=== PATIENT | male | born 1995 | race Caucasian/White ===

== ENCOUNTER → 2017-02-15 | Outpatient (CLI) | payer BC ==
[~2017-02-15] MED LIST: AMPH20TA2 PO; ESCI10TA17 PO; OXYC-57 PO; PREG1CAP70 PO
--- NOTE | 2017-02-15 17:53 | DIAGNOSTIC IMAGING REPORT ---
CHEST 2 VIEWS ROUTINE CLINICAL HISTORY: ACUTE BRONCHITIS dyspnea COMPARISON STUDY: No previous studies for comparison. FINDINGS: The bones soft tissues and hemidiaphragms are normal. The cardiomediastinal silhouette is normal. The lungs are clear. The pulmonary vasculature is normal. IMPRESSION: Negative chest. Electronically signed by: Hernan Boss M.D. 02/15/2017 5:52 PM Dictated Date/Time: 02/15/2017 5:51 PM
== END | disposition home or self-care (01) ==
LOC: C.RAD 17:23
PROVIDERS: ATTEND Physician Assistant
DX: J20.9 Acute bronchitis, unspecified (principal)

== ENCOUNTER → 2017-08-02 | Day surgery (SDC) | payer BC ==
[2017-07-27 09:43] VITALS: BMI 24.0
[~2017-08-02] VITALS: Ht 190.5 cm; Wt 88.0 kg
[~2017-08-02] MED LIST changes: -AMPH20TA2 PO; +ATROPINE SULFATE 0.1 MG/ML 5ML SYR IV PRN; +BUPIVACAINE 0.5 % 5 MG/1 ML MPF 30ML VIAL ONE; +CEFAZOLIN 2000 MG/60 ML D5W IV SCH; +CISATRACURIUM BESYLATE IV SOLN 2 MG/ML 10 ML VIAL ONE; +DEXAMETHASONE SOD INJ 4 MG/ML VIAL ONE; +EpHEDrine SULFATE INJ 50 MG/ML AMP IV PRN; +FENTANYL CITRATE INJ 50 MCG/1 ML 2 ML VIAL ONE; +FLUMAZENIL 0.1 MG/1 ML 10 ML VIAL IV PRN; +GLYCOPYRROLATE INJ 0.2 MG/ML VIAL ONE; +HYDROmorphone INJ 1 MG/ML SYR IV PRN; +HYDROmorphone INJ 2 MG/ML SYR/VIAL ONE; +KETOROLAC TROMETHAMINE 30 MG/ML VIAL ONE; +LACTATED RINGER'S 1000ML 1,000 ML IV ONE; +LACTATED RINGER'S 1000ML 1,000 ML IV SCH; +LIDOCAINE HCL 2% 2 ML VIAL (20MG/ML) ONE; +MIDAZOLAM HCL 1 MG/ML 2ML VIAL ONE; +MoRPHine SULFATE 2 MG/ML CARP IV PRN; +NALOXONE HCL 0.4 MG/1 ML VIAL/CARP IV PRN; +NEOSTIGMINE METHYLSULFATE 5 MG/5 ML SYR ONE; +ONDANSETRON INJ 2 MG/ML 2 ML VIAL IV PRN; +ONDANSETRON INJ 2 MG/ML 2 ML VIAL ONE; +OXYCODONE/ACETAMINOPHEN 5-325 TAB PO PRN; +PROMETHAZINE HCL INJ 12.5 MG in SODIUM CHLORIDE 0.9% 50ML 50 ML IV PRN; +PROPOFOL IV EMULSION 10 MG/ML 20 ML VIAL IV ONE
[2017-08-02 05:49] VITALS: BP 119/69; PULSE 51; TEMP 36.6; O2SAT 99; Ht 190.5 cm; Wt 88.0 kg
--- NOTE | 2017-08-02 07:11 | History & Physical Bridge Note ---
H&P Re-Evaluation Bridge Note: I have examined the patient, reviewed the History & Physical and in the interval since the performance of the History & Physical I have noted the following changes of clinical significance: No changes noted
--- NOTE | 2017-08-02 08:54 | [facility] Post Operative Brief Note ---
Immediate Operative Summary Operative Date Aug 02, 2017. Pre-Operative Diagnosis left inguinal hernia Post-Operative Diagnosis left inguinal hernia Procedure(s) Performed Left Open Inguinal Hernia Repair Surgeon Dr. Greco Equipment Service Engineer Surgeon(s) Hunter Cr PA-C Estimated Blood Loss 5mL Findings scar tissue from prior hip surgery. large direct defect. repaired with plug and patch. Specimens NONE PER SURGEON Anesthesia GETA Complication(s) None Disposition Recovery Room / PACU
--- NOTE | 2017-08-02 09:03 | Discharge Instructions ---
Discharge Instructions Date of Service Aug 02, 2017. Visit Reason for Visit: Left Inguinal Hernia Discharge Discharge Diagnosis / Problem: repair left inguinal hernia Discharge Goals Goal(s): Decrease discomfort Activity Recommendations Activity Limitations: as noted below Lifting Limitations: no more than 10 pounds Shower/Bathe: no limitations (ok to shower) Driving or Machine Use: resume 3 days after discharge Anesthesia . Post Anesthesia Instructions: If you have had General Anesthesia or IV Sedation: * Do not drive today. * Resume driving when surgeon permits. * Do not make important decisions or sign legal documents today. * Call surgeon for: 1. Temperature elevations greater than 101 degrees F. 2. Uncontrollable pain. 3. Excessive bleeding. 4. Persistent nausea and vomiting. 5. Medication intolerance (nausea, vomiting or rash). * For nausea and vomiting use only clear liquids such as: tea, soda, bouillon until nausea subsides, then gradually increase diet as tolerated. * If you have any concerns or questions, call your surgeon's office. If physician is unavailable and it is an emergency, call 911 or go to the nearest emergency room. . Instructions / Follow-Up Instructions / Follow-Up Dr. Greco in 1-2 weeks as planned, call [phone] if you have any questions Ice left groin off and on alternating every 20 minutes until bedtime You may take ibuprofen 600 mg every 6 hours as needed in addition to Percocet Diet Recommendations Recommended Home Diet: no limitations Procedures Procedures Performed: Left Open Inguinal Hernia Repair Pending Studies Studies pending at discharge: no Medical Emergencies . Who to Call and When: Medical Emergencies: If at any time you feel your situation is an emergency, please call 911 immediately. . Non-Emergent Contact Non-Emergency issues call your: Surgeon Call Non-Emergent contact if: you have a fever, temperature is above 101.5, your pain is not controlled, you have any medication questions . . "Provider Documentation" section prepared by Hunter Bloom. .
--- NOTE | 2017-08-02 09:06 | [facility] Operative Report ---
Operative Report Operative Date Aug 02, 2017. Pre-Operative Diagnosis left inguinal hernia Post-Operative Diagnosis left direct inguinal hernia Procedure(s) Performed open left inguinal hernia repair, plug and patch Surgeon Dr. Greco Automatic Casting Machine Operator Surgeon(s) Hunter Cr PA-C Estimated Blood Loss 5mL Findings scar tissue from prior hip surgery. large direct defect. repaired with plug and patch.. Specimens NONE PER SURGEON Anesthesia GETA Complication(s) None Disposition Recovery Room / PACU Indications Symptomatic left inguinal hernia, initially planned for laparoscopic inguinal hernia repair, however patient with latex allergy and no latex free equipment available for TEPP, therefore decided on open repair. The risks of the procedure were discussed, all questions were answered, and the patient agreed to proceed with surgery as planned. Description of Procedure The patient was properly identified, consented, and taken to the operating room where he was placed in the supine position. General endotracheal anesthesia was induced. SCDs and a safety belt were placed. Preoperative antibiotics were administered. The patient's groins and abdomen were prepped and draped in the standard sterile fashion. A surgical timeout was performed and all parties were in agreement that this was the correct patient and procedure to be performed and we continued as planned. Local anesthetic in the form of 0.5% Marcaine was injected along the proposed incision site. An oblique incision was made in the left groin through old incision from hip surgery and deepened down through the subcutaneous tissue with electrocautery. There was significant scarring making it difficult to identify the layers of the abdominal wall.The aponeurosis of the external oblique muscle was cleared of investing tissue. A small incision was made in the aponeurosis of the external oblique muscle with a knife and lengthened under direct visualization with Metzenbaum scissors. Flaps were raised cephalad and caudad on the posterior portion of the external oblique. The ilioinguinal nerve was not identified. The cord structures were circumferentially dissected and encircled with a Brad drain. A large direct hernia was noted. The hernia sac was dissected away from the cord structures, and reduced back into the abdomen. Hemostasis was achieved within the wound. A plug was placed in the direct space and secured in 4 points with 0 nurolon suture. A piece polypropylene mesh was sewn into place using interrupted 0 Nurolon sutures. It was secured to the pubic tubercle medially, the inguinal ligament caudad, and the conjoined tendon cephalad. The internal ring was recreated by securing the tails and could accommodate the tip of the surgeons fifth digit. The wound was irrigated. The aponeurosis of the external oblique was then closed with a running 3-0 Vicryl suture. Kayce's fascia was reapproximated with interrupted 3-0 Vicryl suture. The skin was closed with a running 4-0 Monocryl subcuticular suture, and Dermabond was placed over the incision. The patient was extubated in the operating room and taken to the PACU for recovery without apparent incident. All sponge, instrument, and needle counts were correct at the conclusion of the procedure. The patient tolerated the procedure well. I attest to the content of the Intraoperative Record and any orders documented therein. Any exceptions are noted below.
--- NOTE | 2017-08-02 09:40 | Anesthesiology Progress Note ---
Anesthesia Post Op Note Date & Time Aug 02, 2017 at 09:40 Vital Signs Pain Intensity: 5.0 Vital Signs Past 12 Hours Date Time Temp Pulse Resp B/P (MAP) Pulse Ox O2 Delivery O2 Flow Rate FiO2 08/02/17 09:08 36.1 64 16 132/86 100 Oxymask 10 08/02/17 05:49 36.6 51 16 119/69 (86) 99 Room Air Notes Mental Status: alert / awake / arousable, participated in evaluation Pt Amnestic to Procedure: Yes Nausea / Vomiting: adequately controlled Pain: adequately controlled Airway Patency, RR, SpO2: stable & adequate BP & HR: stable & adequate Hydration State: stable & adequate Anesthetic Complications: no major complications apparent
[2017-08-02 10:00] VITALS: BP 119/71; PULSE 54; TEMP 36.7; O2SAT 99
[2017-08-02 10:34] VITALS: BP 124/79; PULSE 49; TEMP 36.7; O2SAT 99
[2017-08-02 11:00] VITALS: BP 118/77; PULSE 67; TEMP 36.7; O2SAT 99
[2017-08-02 11:29] VITALS: BP 120/74; PULSE 64; TEMP 36.7; O2SAT 99
== END | disposition home or self-care (01) ==
LOC: C.ACU 05:15
PROVIDERS: ATTEND Surgery
DX: K40.90 Unilateral inguinal hernia, without obstruction or gangrene, not specified as recurrent (principal)

== ENCOUNTER 2017-12-24 19:02 | Inpatient (IN) | payer BC, OTHER ==
[~2017-12-24] VITALS: Ht 185.4 cm; Wt 90.5 kg
[~2017-12-24 19:02] MED LIST changes: -ATROPINE SULFATE 0.1 MG/ML 5ML SYR IV PRN; -BUPIVACAINE 0.5 % 5 MG/1 ML MPF 30ML VIAL ONE; -CEFAZOLIN 2000 MG/60 ML D5W IV SCH; -CISATRACURIUM BESYLATE IV SOLN 2 MG/ML 10 ML VIAL ONE; -DEXAMETHASONE SOD INJ 4 MG/ML VIAL ONE; -EpHEDrine SULFATE INJ 50 MG/ML AMP IV PRN; -FENTANYL CITRATE INJ 50 MCG/1 ML 2 ML VIAL ONE; -FLUMAZENIL 0.1 MG/1 ML 10 ML VIAL IV PRN; -GLYCOPYRROLATE INJ 0.2 MG/ML VIAL ONE; -HYDROmorphone INJ 1 MG/ML SYR IV PRN; -HYDROmorphone INJ 2 MG/ML SYR/VIAL ONE; -KETOROLAC TROMETHAMINE 30 MG/ML VIAL ONE; -LACTATED RINGER'S 1000ML 1,000 ML IV ONE; -LACTATED RINGER'S 1000ML 1,000 ML IV SCH; -LIDOCAINE HCL 2% 2 ML VIAL (20MG/ML) ONE; -MIDAZOLAM HCL 1 MG/ML 2ML VIAL ONE; -MoRPHine SULFATE 2 MG/ML CARP IV PRN; -NALOXONE HCL 0.4 MG/1 ML VIAL/CARP IV PRN; -NEOSTIGMINE METHYLSULFATE 5 MG/5 ML SYR ONE; -ONDANSETRON INJ 2 MG/ML 2 ML VIAL IV PRN; -ONDANSETRON INJ 2 MG/ML 2 ML VIAL ONE; -OXYCODONE/ACETAMINOPHEN 5-325 TAB PO PRN; -PROMETHAZINE HCL INJ 12.5 MG in SODIUM CHLORIDE 0.9% 50ML 50 ML IV PRN; -PROPOFOL IV EMULSION 10 MG/ML 20 ML VIAL IV ONE
[2017-12-24] MEDS ORDERED: BUPR-83 PO (19:48)
[2017-12-24 19:51] LABS: BASO % 0.5 %; BASO ABS # 0.04 K/uL (0-0.2); EOS % 1.3 %; HEMATOCRIT 46.3 % (42-52); HEMOGLOBIN 16.2 g/dL (14.0-18.0); IG# 0.01 K/uL (0.00-0.02); LYMPH % 39.6 %; LYMPH ABS # 3.03 K/uL (1.2-3.4); MEAN CELL VOLUME 91.5 fL (80-100); MEAN PLATELET VOLUME 9.7 fL (7.4-10.4); MONO ABS # 0.69 K/uL (0.11-0.59); NEUT % 49.5 %; NEUT ABS # 3.78 K/uL (1.4-6.5); PLATELET COUNT 207 K/uL (130-400); RED CELL DISTRIBUTION WIDTH CV 12.5 % (11.5-14.5); RED CELL DISTRIBUTION WIDTH SD 41.5 fL (36.4-46.3); WHITE BLOOD COUNT 7.65 K/uL (4.8-10.8)
[2017-12-24 20:10] LABS: ALBUMIN 4.1 gm/dl (3.4-5.0); CALCIUM 8.8 mg/dl (8.5-10.1); CREATININE 1.12 mg/dl (0.60-1.40); POTASSIUM 4.1 mmol/L (3.5-5.1)
[2017-12-24 20:21] LABS: TOTAL PROTEIN 8.1 gm/dl (6.4-8.2)
[2017-12-24] MEDS ORDERED: NURSING VERBAL MED ORDER ONE (21:00)
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
[2017-12-24 21:09] VITALS: O2SAT 98
[2017-12-24] MEDS ORDERED: hydrOXYzine HCL 25 MG TAB PO PRN (21:45)
[2017-12-24] MEDS ORDERED: MAGNESIUM HYDROXIDE SUSP 30 ML UDC PO PRN (21:45)
[2017-12-24] MEDS ORDERED: ACETAMINOPHEN 325 MG TAB PO PRN (21:45)
[2017-12-24] MEDS ORDERED: SODIUM CHLORIDE 0.65% NA SOLN 45 ML (OCEAN) PRN (21:45)
[2017-12-24] MEDS ORDERED: BISMUTH SUBSALICYLATE PER ML OMNICELL CHARGE PO PRN (21:45)
[2017-12-24] MEDS ORDERED: ALUMINUM/MAGNESIUM SUSP 30 ML UDC PO PRN (21:45)
[2017-12-24] MEDS: PREGABALIN 150 MG CAP PO SCH (22:07)
[2017-12-24 22:27] VITALS: BP 112/74; PULSE 79; TEMP 37; Ht 185.4 cm; Wt 90.5 kg
[2017-12-25 06:57] VITALS: BP_SYST 107; BP_SYST 108; BP_DIAS 64; BP_DIAS 66; PULSE 56; PULSE 62; TEMP 36.7
[2017-12-25] MEDS ORDERED: INFLUENZA VIRUS QUAD VACCINE 0.5 ML SYR IM. ONE (08:00)
[2017-12-25] MEDS ORDERED: INFLUENZA ADMINISTRATION CHARGE ONE (08:00)
[2017-12-25] MEDS: ESCITALOPRAM OXALATE 10 MG TAB PO SCH (08:35)
[2017-12-25] MEDS: PREGABALIN 150 MG CAP PO SCH ×2 (08:36→21:06)
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
[2017-12-25] MEDS: hydrOXYzine HCL 25 MG TAB PO PRN (21:29)
[2017-12-26 07:06] VITALS: BP_SYST 108; BP_SYST 114; BP_DIAS 68; BP_DIAS 70; PULSE 51; PULSE 55; TEMP 36.6
[2017-12-26] MEDS: PREGABALIN 150 MG CAP PO SCH ×2 (09:22→21:12)
[2017-12-26] MEDS: ESCITALOPRAM OXALATE 10 MG TAB PO SCH (09:23)
--- NOTE | 2017-12-26 10:55 | Psychiatric Progress Notes ---
Progress Note Date of Service Dec 26, 2017. Interval History Dario Santillan is a 22-year-old male admitted on Dec 24, 2017 at 21:03 who [place] in [place] with his girlfriend, has a history of depression, ADHD, ODD, antisocial personality disorder, and cannabis abuse, presented to the emergency room with suicidal ideation and a plan to kill himself and all of his farm animals, and was admitted on a 201 voluntary commitment. Patient is admitted from home, and was brought to the ED by the family. Chief Complaint "Good". Subjective Patient was seen & assessed interval progress reviewed with Nursing. Staff report he has been attending programming, and reported feeling annoyed after a short visit with his girlfriend yesterday. He continued to state he wanted his medications adjusted, and said he wanted to wait until today to talk about his stressors. He received hydroxyzine for sleep last night. A meeting is scheduled with his girlfriend for this afternoon. Today, he was seen with Johanna Dunn, MS3. He reports that he is "getting stress sweat when I go into groups." He has been able to go to groups and will talk when it's his turn, but doesn't like to go first. Mood is improved from admission, "haven't had any bad thoughts." Denies SI since admission, and denies thoughts of hurting his animals. He is hoping to discuss the plan for their animals at the meeting with his GF today. He slept well, and is eating. He Sleep Information Total Hours of Sleep: 8.00 Meal Information Percent of Breakfast Consumed: 100 Percent of Lunch Consumed: 95 Percent of Dinner Consumed: 100 Mental Status Exam During interview pt is: alert and oriented Appearance: appropriately dressed, appropriately groomed, disheveled Eye contact is: good Motor behavior is: steady gait & station, no abnormal motor movements Speech: normal in rate, rhythm & volume Affect: mood congruent Mood is: other ("good") Thought process: goal directed, clear, coherent Thought content: reality based without delusions Suicidal thought are: denied Homicidal thoughts are: denied Hallucinations: denies auditory, denies visual Cognition: memory grossly intact, attention grossly intact, language grossly intact Intelligence estimated to be: average Insight: impaired Judgement: impaired Medication Trials Concerta - side effects Adderall - abused it Adderall XR Sertraline - ineffective Escitalopram - sexual side effects Venlafaxine XR - 150 mg was ineffective Duloxetine Trazodone Clonazepam Impression Dario is a 22-year-old white male with a history of oppositional defiant disorder, antisocial personality disorder, a question of ADHD, substance abuse ( cannabis, stimulants, and alcohol), depression, and social anxiety who sees Dr. Quinones at [facility] and is admitted with suicidal ideation and thought to kill his animals in the context of psychosocial stressors and ceasing regular marijuana use. He believes he has bipolar disorder and requested medication changes, including to be restarted on stimulants, but discussed with his outpatient psychiatrist and do not believe he is bipolar or that medication adjustments are currently indicated. Focus of treatment will be on psychoeducation, a plan for sobriety from alcohol and cannabis, looking at ways he can learn to deal with his stressors, and communication. His anger outbursts are chronic and currently exacerbated by psychosocial stressors, including his girlfriend's which he is not necessarily in favor of and caring for their numerous animals, which he does not like. He is also been abusing cannabis and alcohol, and is scheduled to see pain management, hoping to be started back on narcotic medications for chronic pain. We could consider a dose increase in his antidepressants, and would encourage he engage in psychotherapy, which she has refused in the past. He will have a meeting with his girlfriend today to discuss the , the animals, and how they will manage their stressors moving forward. Plan (1) Suicidal ideation Every 15 minute checks for safety. Attend and participate in groups and therapy on the unit, work on healthy coping skills and the discharge safety plan. We will need to involve his girlfriend regarding safety plan, and develop a plan to restrict his access to firearms during periods of instability. (2) Depression 2/5 - continue escitalopram 10 mg daily and bupropion SR 200 mg every morning. - Reviewed with OP psychiatrist Dr. Quinones who agrees that he needs to work on communication and coping skills, ways to accept responsibility for his life and choices, and that medication adjustments are not necessarily indicated. She does think he does better on meds, and with a regular schedule/structure and job , and decompensates when he goes off meds, but often thinks meds are not helping. - Family meeting with girlfriend, needs to address their stressors, including animals, and explore ways to increase their supports ([facility], case management?) 2/6 - Continue meds while working on coping skills, communication, ways to mitigate stressors, and plan for sobriety. (3) Anxiety Continue home dose of escitalopram. Offer hydroxyzine as needed. Work on coping skills for managing anxiety. (4) Alcohol abuse Brief intervention was offered and accepted Intervention was greater than 5 min in length. Brief interventions include: 1. Assess Readiness to Quit, 2. Advise: Help Patient to Reduce or Abstain from Alcohol, 3. Agree: Set Specific, Feasible Goals, 4. Assist: Anticipate barriers, Problem-Solving Solutions. Social work to 5. Arrange: Referrals to appropriate treatment. Summary of intervention: The patient is in precontemplation stage with regards to transtheoretical model of change. The patient is advised to decrease alcohol consumption due to depressant effects and risk of interactions with prescription medications. The patient agreed to consider changes, and will be provided with recovery materials to continue to education self on how to cope with their condition without drinking. (5) Cannabis abuse Brief intervention provided, reviewed risks of ongoing cannabis use, including worsening of mood, anxiety, interactions with medications, legal concerns, decreased motivation, etc. Reviewed recommendations for abstinence, and would benefit form substance abuse treatment. (6) Chronic pain 12/25 - patient currently seen his surgeon at [facility] and getting Lyrica there, although Dr. Quinones questioned whether he has been able to get it, as apparently they ran out of samples at some point. He states he is planning to follow up at [facility] locally on [facility], and we should get a release and send records to them for coordination of care. 12/26 - Patient confirms that he is still getting Lyrica, went through the drug company to get it without cost. He has an intake at [facility] on 01/07. Discharge / Aftercare Planning Primary Care Physician: Name: Octavio Huerta) Appointment Notes: seceduled as needed Psychiatrist: Name: Dr. Quinones - [facility] Date of Appointment: Jan 11, 2018 Time of Appointment: 8:00 am Appointment Notes: [address] [id number] Therapist: Name: Baljit Cotton Bag Clipper: Name: Baljit Visit Code E&M Code: 40518 Inventory Assets Strengths: Employed, has housing, stable relationship Needs: Abstinence from substances, psychotherapy Risk Factors Assessment Male: Yes : Yes /single/: No Higher / Fall in social status: No Health problems: Yes Mental Health Diagnoses: Yes Substance use disorders: Yes Previous attempt: Yes Family history of suicide: No Previous psychiatric stay: Yes Hopelessness: No Smoker: No Protective Factors Assessment Adventism beliefs: No : No Responsible for young children: No Employed: Yes Stable relationships: Yes Supportive family: Yes Data Vital Signs Last 24 Hrs: Date Time Temp Pulse Resp B/P (MAP) Pulse Ox O2 Delivery O2 Flow Rate FiO2 12/26/17 07:06 36.6 55 16 108/68 51 114/70 Meds Administered Last 24 Hrs: Meds Administered (Past 24Hrs) Medications (Trade) Dose Ordered Sig/Shabbir Route Start Time Stop Time Status Last Admin Dose Admin Hydroxyzine HCl (Vistaril Tab) 50 mg HSZ PRN PO 12/24/17 21:45 01/23/18 21:44 12/25/17 21:29 50 MG Bupropion HCl (Wellbutrin Tab) 100 mg BID@0900,1700 PO 12/25/17 09:00 01/24/18 08:59 12/26/17 09:23 100 MG Escitalopram Oxalate (Lexapro Tab) 10 mg DAILY PO 12/25/17 09:00 01/24/18 08:59 12/26/17 09:23 10 MG Pregabalin (Lyrica Cap) 150 mg BID PO 12/24/17 22:00 01/23/18 21:59 12/26/17 09:22 150 MG Influenza Virus Vaccine Quadrival (Flucelvax Quad Vaccine) 0.5 ml ONCE ONCE IM. 12/25/17 08:00 12/25/17 08:01 DC 12/25/17 12:31 0.5 ML Problem Qualifiers (1) Depression: Major depression recurrence: recurrent Active/Remission status: currently active
--- NOTE | 2017-12-26 11:57 | Medical Student: BHU Only ---
Psychiatric Progress Note 22 year old male with a history of ODD, depression, and Antisocial personality disorder was admitted voluntarily after thoughts and comments about killing himself and all the animals in his house. He lives with his girlfriend who is with their first child. He states that he is doing "good" today and his mood is "good". He has noticed that he starts to get "stress sweats" when he is sitting in group therapy. He states that he is still able to participate in the activities but is feeling nervous and anxious. He slept through the night for about 8.5 hours last night but did take some hydroxyzine to sleep. His appetite is good and he states that he was able to finish all his meals. His girlfriend visited yesterday and has agreed to a family meeting today to discuss the animals moving forward, especially with the baby on the way. We also discussed his desire to start back on pain medication. After talking to Dr. Block, he understood that the first step would be to cease substance abuse from alcohol and marijuana. He has started that during his inpatient stay with us but he is encouraged to continue after discharge. Assessment: Major Depressive Disorder, Recurrent, Moderate Severity Risk for decompensation is judged to continue to be present if not hospitalized. Plan: Continue to monitor on the floor. Encourage family meeting to discuss animals as well as using resources like nurse-family partnership Encourage detox from alcohol and marijuana Continue supportive psychotherapy, structure, and encourage group participation. Recommend outpatient therapy and psychiatric follow-up post-discharge. Partial hospitalization treatment post discharge is indicated but not available in this area. Time spent: []-[] hr Subsequent Hospital Care: [id number] Date of Service: Dec 26, 2017.
[2017-12-26] MEDS: hydrOXYzine HCL 25 MG TAB PO PRN (21:39)
[2017-12-27 07:02] VITALS: BP_SYST 107; BP_SYST 109; BP_DIAS 67; BP_DIAS 69; PULSE 52; PULSE 65; TEMP 36.7
[2017-12-27] MEDS: ESCITALOPRAM OXALATE 10 MG TAB PO SCH (08:39)
[2017-12-27] MEDS: PREGABALIN 150 MG CAP PO SCH ×2 (08:39→21:09)
[2017-12-27] MEDS: BuPROPion SR 100 MG TABCR PO SCH (09:00)
--- NOTE | 2017-12-27 13:08 | Psychiatric Progress Notes ---
Progress Note Date of Service Dec 27, 2017. 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 Patient is admitted from home, and was brought to the ED by the family. Chief Complaint "Well the meeting went terrible". Subjective Patient was seen & assessed interval progress reviewed with Treatment Team. Staff report he was angry and immature in his family meeting, was focused on wanting pot and anger at treatment suggestions. He has been refusing bupropion, saying he wants medication changes. On assessment today, he says he hasn't been discussing his anxiety or how to manage it in groups, and can't explain why he is not addressing this, as he also identifies it as his primary issue. He says he doesn't want to take bupropion as "it's not doing anything for me." Again reviewed concerns that he has stopped his medications in the past, and has gotten worse. He did agree to therapy and was referred to Stan Yap at [facility]. He says he "wants to go home now, but I'm not going to argue about it." He denies SI, and gives conflicting reports, for example initially says the hospital is really helping him, then says it is not helping at all. He continues to state "I think I'm bipolar, because I have ups and downs." He also continues to ask for "something else for anxiety," and after discussion, was willing to increase escitalopram. Sleep Information Total Hours of Sleep: 6.50 Meal Information Percent of Breakfast Consumed: 100 Percent of Lunch Consumed: 100 Percent of Dinner Consumed: 100 Mental Status Exam During interview pt is: alert and oriented, cooperative Appearance: appropriately dressed, appropriately groomed, disheveled Eye contact is: good Motor behavior is: steady gait & station, no abnormal motor movements Speech: normal in rate, rhythm & volume Affect: mood congruent Mood is: other ("anxiety is my main problem") Thought process: goal directed, clear, coherent Thought content: reality based without delusions Suicidal thought are: denied Homicidal thoughts are: denied Hallucinations: denies auditory, denies visual Cognition: memory grossly intact, attention grossly intact, language grossly intact Intelligence estimated to be: average Insight: impaired Judgement: impaired Medication Trials Concerta - side effects Adderall - abused it Adderall XR Sertraline - ineffective Escitalopram - sexual side effects Venlafaxine XR - 150 mg was ineffective Duloxetine Trazodone Clonazepam Impression Dario is a 22-year-old white male with a history of oppositional defiant disorder, antisocial personality disorder, a question of ADHD, substance abuse ( cannabis, stimulants, and alcohol), depression, and social anxiety who sees Dr. Quinones at [facility] and is admitted with suicidal ideation and thought to kill his animals in the context of psychosocial stressors, alcohol and marijuana abuse. He believes he has bipolar disorder and requested medication changes, including to be restarted on stimulants, but discussed with his outpatient psychiatrist and do not believe he is bipolar or that stimulants are appropriate. Focus of treatment will be on psychoeducation, a plan for sobriety from alcohol and cannabis, looking at ways he can learn to deal with his stressors, and communication. His anger outbursts are chronic and currently exacerbated by psychosocial stressors, including his girlfriend's which he is not necessarily in favor of, and caring for their numerous animals, which he does not like. He is also been abusing cannabis and alcohol, and is scheduled to see pain management, hoping to be started back on narcotic medications for chronic pain. He had a difficult meeting with his girlfriend but agreed to re-referral to therapy. Plan (1) Suicidal ideation Every 15 minute checks for safety. Attend and participate in groups and therapy on the unit, work on healthy coping skills and the discharge safety plan. We will need to involve his girlfriend regarding safety plan, and develop a plan to restrict his access to firearms during periods of instability. 2/7 - GF will remove guns prior to discharge. (2) Depression 2/5 - continue escitalopram 10 mg daily and bupropion SR 200 mg every morning. - Reviewed with OP psychiatrist Dr. Quinones who agrees that he needs to work on communication and coping skills, ways to accept responsibility for his life and choices, and that medication adjustments are not necessarily indicated. She does think he does better on meds, and with a regular schedule/structure and job , and decompensates when he goes off meds, but often thinks meds are not helping. - Family meeting with girlfriend, needs to address their stressors, including animals, and explore ways to increase their supports ([facility] Family [facility], case management?) 2/ - Continue meds while working on coping skills, communication, ways to mitigate stressors, and plan for sobriety. 2 - Pt refusing bupropion, encouraged to continue it as per OP psychiatrist has done worse when took himself off it in the past. Increase escitalopram to 20mg daily. - Referred for therapy (3) Anxiety Continue home dose of escitalopram. Offer hydroxyzine as needed. Work on coping skills for managing anxiety. 12/27 - increase escitalopram to 20mg daily. (4) Alcohol abuse Brief intervention was offered and accepted Intervention was greater than 5 min in length. Brief interventions include: 1. Assess Readiness to Quit, 2. Advise: Help Patient to Reduce or Abstain from Alcohol, 3. Agree: Set Specific, Feasible Goals, 4. Assist: Anticipate barriers, Problem-Solving Solutions. Social work to 5. Arrange: Referrals to appropriate treatment. Summary of intervention: The patient is in precontemplation stage with regards to transtheoretical model of change. The patient is advised to decrease alcohol consumption due to depressant effects and risk of interactions with prescription medications. The patient agreed to consider changes, and will be provided with recovery materials to continue to education self on how to cope with their condition without drinking. (5) Cannabis abuse Brief intervention provided, reviewed risks of ongoing cannabis use, including worsening of mood, anxiety, interactions with medications, legal concerns, decreased motivation, etc. Reviewed recommendations for abstinence, and would benefit form substance abuse treatment. (6) Chronic pain 2 - patient currently seen his surgeon at [facility] and getting Lyrica there, although Dr. Quinones questioned whether he has been able to get it, as apparently they ran out of samples at some point. He states he is planning to follow up at [facility] locally on [facility], and we should get a release and send records to them for coordination of care. 12/26 - Patient confirms that he is still getting Lyrica, went through the [employer] to get it without cost. He has an intake at [facility] ( [facility] on 01/07 - send records for coordination of care. Discharge / Aftercare Planning Primary Care Physician: Name: Octavio Simpson (Angie Huerta) Appointment Notes: seceduled as needed Psychiatrist: Name: Dr. Quinones - [facility] Date of Appointment: Jan 11, 2018 Time of Appointment: 8:00 am Appointment Notes: [address] [place] [address] [facility] Date of Appointment: Jan 04, 2018 Time of Appointment: 11:00 am Appointment Notes: [address] [place] [address] Assistant Administrator: Name: Baljit Visit Code E&M Code: 66719 Inventory Assets Strengths: Employed, has housing, stable relationship Needs: Abstinence from substances, psychotherapy Risk Factors Assessment Male: Yes : Yes /single/: No Higher / Fall in social status: No Health problems: Yes Mental Health Diagnoses: Yes Substance use disorders: Yes Previous attempt: Yes Family history of suicide: No Previous psychiatric stay: Yes Hopelessness: No Smoker: No Protective Factors Assessment Evangelical beliefs: No : No Responsible for young children: No Employed: Yes Stable relationships: Yes Supportive family: Yes Data Vital Signs Last 24 Hrs: Date Time Temp Pulse Resp B/P (MAP) Pulse Ox O2 Delivery O2 Flow Rate FiO2 12/27/17 07:02 36.7 65 16 107/67 52 109/69 Problem Qualifiers (1) Depression: Major depression recurrence: recurrent Active/Remission status: currently active
[2017-12-27] MEDS: hydrOXYzine HCL 25 MG TAB PO PRN (21:09)
[2017-12-28 07:00] VITALS: BP_SYST 107; BP_SYST 113; BP_DIAS 65; BP_DIAS 70; PULSE 51; PULSE 54; TEMP 36.6
[2017-12-28] MEDS: PREGABALIN 150 MG CAP PO SCH (08:44)
[2017-12-28] MEDS: BuPROPion SR 100 MG TABCR PO SCH ×2 (08:44→08:46)
[2017-12-28] MEDS: ESCITALOPRAM OXALATE 10 MG TAB PO SCH (08:44)
[2017-12-28] MEDS ORDERED: LXP20 PO (09:05)
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
[2017-12-29] MEDS ORDERED: ESCITALOPRAM OXALATE 10 MG TAB PO SCH (09:00)
[2017-12-29] MEDS ORDERED: ESCITALOPRAM OXALATE 10 MG TAB PO ONE (09:00)
== END 2017-12-28 11:00 | disposition home or self-care (01) | DRG 885 ==
LOC: C.EDB 19:03 → C.MHU 21:03 → ENRESERV 21:22
PROVIDERS: ADMIT Psychiatry & Neurology Psychiatry; ATTEND Psychiatry & Neurology Psychiatry
DX: F33.2 Major depressive disorder, recurrent severe without psychotic features (principal); R45.851 Suicidal ideations; F41.9 Anxiety disorder, unspecified; G89.29 Other chronic pain; F12.10 Cannabis abuse, uncomplicated; F10.10 Alcohol abuse, uncomplicated; Z79.899 Other long term (current) drug therapy; Z91.048 Other nonmedicinal substance allergy status; Z91.040 Latex allergy status; Z81.1 Family history of alcohol abuse and dependence; Z81.8 Family history of other mental and behavioral disorders

== ENCOUNTER → 2018-06-19 | Outpatient (CLI) | payer OTHER ==
[~2018-06-19] MED LIST changes: +BUPR-83 PO; -ESCI10TA17 PO; +LXP20 PO; -OXYC-57 PO
--- NOTE | 2018-06-19 15:29 | DIAGNOSTIC IMAGING REPORT ---
L PELVIS/UNILATERAL HIP 2-3VIEWS CLINICAL HISTORY: ACUTE ON CHRONIC LEFT HIP PAIN COMPARISON: None. DISCUSSION: Evidence for a prior left hip and left hemipelvic reconstructive procedure. Multiple plates and screws are identified. Right hemipelvis remains unremarkable. There is no evidence for soft tissue swelling. IMPRESSION: 1. Extensive postoperative changes consistent with a left hemipelvic and left hip reconstructive procedure. 2. Multiple plates and screws are present. 3. No acute bony abnormality The above report was generated using voice recognition software. It may contain grammatical, syntax or spelling errors. Electronically signed by: Hernan Boss M.D. 06/19/2018 3:28 PM Dictated Date/Time: 06/19/2018 3:26 PM
== END | disposition home or self-care (01) ==
LOC: C.RAD 14:53
PROVIDERS: ATTEND Physician Assistant
DX: M25.552 Pain in left hip (principal); G89.29 Other chronic pain